=== PATIENT | female | born 1950 | race Caucasian/White ===

== ENCOUNTER 2025-08-06 05:55 | Inpatient (IN) | payer MEDICARE, BC ==
[2025-08-06] VITALS (7 sets, daily range): BP systolic 118–148; BP diastolic 52–82; PULSE 66–75; RESP 15–20; TEMP 35.9–36.6; O2SAT 95–99
[~2025-08-06] VITALS: Ht 167.6 cm; Wt 52.2 kg
[2025-08-06 06:44] LABS: BASOPHILS % 0.6 % (0.0-2.0); EOSINOPHILS % 4.5 % (0.0-5.0); HEMATOCRIT. 31.1 % (36.0-48.0); HEMOGLOBIN. 10.2 g/dL (12.0-16.0); LYMPHOCYTES % 24.5 % (20.0-50.0); MEAN PLATELET VOLUME 8.6 fl (7.4-10.4); MONOCYTES % 10.6 % (2.0-8.0); NEUTROPHILS % 59.8 % (40.0-76.0); PLATELET 145 x1000/uL (130-400); RED BLOOD CELL COUNT 3.65 mill/uL (4.2-5.4); RED CELL DISTRIBUTION WIDTH 15.8 % (11.6-14.6)
[2025-08-06 07:02] LABS: CREATININE 1.2 mg/dL (0.6-1.0)
[2025-08-06 07:03] LABS: ETHANOL BLOOD < 10 mg/dL (<10); UREA NITROGEN BLOOD 20 mg/dL (9-23)
[2025-08-06 07:04] LABS: ASPARTATE AMINOTRANSFERASE 65 IU/L (<34); BILIRUBIN DIRECT 0.5 mg/dL (<=3.0)
[2025-08-06 07:05] LABS: BILIRUBIN TOTAL 0.9 mg/dL (0.1-1.0); PROTEIN TOTAL 6.7 g/dL (6.0-8.3)
[2025-08-06 07:07] LABS: INR 1.2
[2025-08-06] MEDS: IOHEXOL-350 100 ML BOTTLE ONE (09:40)
[2025-08-06] MEDS ORDERED: LORATADINE 10MG TABLET PO PRN (09:45)
[2025-08-06] MEDS ORDERED: GUAIFENESIN 200MG/10ML SUGAR FREE UDC PO PRN (09:45)
[2025-08-06] MEDS ORDERED: DOCUSATE SODIUM 100MG CAPSULE PO PRN (09:45)
[2025-08-06] MEDS ORDERED: ONDANSETRON HCL 4MG/2ML INJ IV PRN (09:45)
[2025-08-06] MEDS ORDERED: ACETAMINOPHEN 325MG TABLET PO PRN (09:45)
[2025-08-06] MEDS ORDERED: SODIUM CHLORIDE 0.45% 1,000 ML IV SCH (09:45)
[2025-08-06] MEDS ORDERED: MAGNESIUM/ALUMINUM HYDROXIDE/SIMETHICONE 30ML UDC PO PRN (09:45)
[2025-08-06] MEDS ORDERED: IPRATROPIUM/ALBUTEROL 0.5-3(2.5)MG/3ML NEB HHN PRN (09:45)
[2025-08-06] MEDS: SODIUM CHLORIDE 0.45% 1,000 ML IV SCH (10:04)
[2025-08-06] MEDS ORDERED: URSODIOL 300MG CAPSULE PO SCH (13:00)
[2025-08-06 13:14] LABS: LDL CHOLESTEROL 45 mg/dL (5-100); TRIGLYCERIDE 68 mg/dL (0-150)
[2025-08-06 13:15] LABS: PHOSPHORUS 2.8 mg/dL (2.5-4.9)
[2025-08-06 13:19] LABS: T4 FREE 1.16 ng/dL (0.89-1.76)
[2025-08-06 13:20] LABS: FOLIC ACID (FOLATE) SERUM 10.50 ng/mL (>5.38); VITAMIN B12 SERUM 926 pg/mL (211-911)
[2025-08-06 14:36] LABS: TROPONIN I HIGH SENSITIVITY < 4 ng/L (3.0-34)
[2025-08-06] MEDS ORDERED: Actigall (17:33)
[2025-08-06] MEDS ORDERED: ROSU40TA MT (17:33)
[2025-08-06] MEDS ORDERED: TACR1CAP2 MT (17:33)
[2025-08-06] MEDS ORDERED: MELA5TAB19 MT (17:33)
[2025-08-06] MEDS: MAGNESIUM 1 G PREMIX 100 ML IV SCH (18:19)
[2025-08-06] MEDS: ATORVASTATIN CALCIUM 40MG TABLET PO SCH (20:52)
[2025-08-06] MEDS: LATANOPROST 0.005% OPHTH DROPS 2.5ML BOTHEYE SCH (20:52)
[2025-08-06] MEDS ORDERED: TACR0.5C4 PO (22:04)
[2025-08-06] MEDS: TACROLIMUS 1MG CAPSULE PO SCH (22:18)
[2025-08-06 23:40] LABS: TROPONIN I HIGH SENSITIVITY < 4 ng/L (3.0-34)
[2025-08-07] VITALS: BP 147/66; PULSE 72; RESP 20; TEMP 36.3; O2SAT 96
[2025-08-07] MEDS: ACETAMINOPHEN 325MG TABLET PO PRN (03:33)
[2025-08-07 04:00] VITALS: BP 145/66; PULSE 69; RESP 20; TEMP 36.3; O2SAT 100
[2025-08-07 07:09] LABS: CREATININE 1.1 mg/dL (0.6-1.0); PLATELET 163 x1000/uL (130-400); RED BLOOD CELL COUNT 4.15 mill/uL (4.2-5.4); RED CELL DISTRIBUTION WIDTH 15.3 % (11.6-14.6); UREA NITROGEN BLOOD 16.0 mg/dL (9-23)
[2025-08-07] MEDS: LEVOTHYROXINE SODIUM 25MCG TABLET PO SCH (07:50)
[2025-08-07 08:00] VITALS: BP 133/58; PULSE 67; RESP 18; TEMP 36.5; O2SAT 98
[2025-08-07] MEDS ORDERED: TACROLIMUS 1MG/PACKET PO SCH (09:00)
[2025-08-07 12:00] VITALS: BP 154/72; PULSE 73; RESP 18; TEMP 36.6; O2SAT 98
[2025-08-07 13:47] LABS: CLARITY URINE CLEAR (CLEAR); COLOR URINE YELLOW (YELLOW); GLUCOSE URINE NEGATIVE (NEGATIVE); KETONES URINE NEGATIVE (NEGATIVE); LEUKOCYTE ESTERASE URINE NEGATIVE (NEGATIVE); NITRITE URINE NEGATIVE (NEGATIVE); OCCULT BLOOD URINE NEGATIVE (NEGATIVE); PH URINE 6.0 (4.5-8.0); PROTEIN URINE NEGATIVE (NEGATIVE); SPECIFIC GRAVITY URINE 1.009 (1.005-1.030); UROBILINOGEN URINE 0.2 E.U./dL (0.2-1.0)
[2025-08-07 13:57] LABS: *AMPHETAMINES SCREEN URINE NEGATIVE (NEGATIVE); *BARBITURATES SCREEN URINE NEGATIVE (NEGATIVE); *BENZODIAZEPINES SCREEN URINE NEGATIVE (NEGATIVE); *COCAINE SCREEN URINE NEGATIVE (NEGATIVE); CANNABINOID URINE SCREEN NEGATIVE (NEGATIVE); ECSTASY MDMA SCREEN URINE NEGATIVE (NEGATIVE); METHADONE URINE SCREEN NEGATIVE (NEGATIVE); OPIATES URINE SCREEN NEGATIVE (NEGATIVE); PHENCYCLIDINE URINE SCREEN NEGATIVE (NEGATIVE)
[2025-08-07] MEDS ORDERED: AMLO5TAB88 PO (14:22)
[2025-08-07] MEDS ORDERED: BRIM.2 EACHEYE (14:22)
[2025-08-07] MEDS ORDERED: ZOLP10TA2 PO (14:22)
[2025-08-07] MEDS ORDERED: LATA2.5D7 EACHEYE (14:22)
[2025-08-07] MEDS ORDERED: URSO250T21 PO (14:24)
[2025-08-07 16:00] VITALS: BP 123/66; PULSE 70; RESP 17; TEMP 36.5; O2SAT 100
[2025-08-07] MEDS ORDERED: CLONIDINE 0.1MG TABLET PO PRN (16:45)
[2025-08-07 17:28] LABS: TRIGLYCERIDE 73.0 mg/dL (0-150)
[2025-08-07 17:29] LABS: LDL CHOLESTEROL 51.0 mg/dL (5-100)
[2025-08-07 17:30] LABS: CREATINE KINASE MB FRACTION < 0.5 ng/mL (0.5-3.6); TROPONIN I HIGH SENSITIVITY < 4 ng/L (3.0-34)
[2025-08-07 17:31] LABS: T4 FREE 1.05 ng/dL (0.89-1.76)
[2025-08-07] MEDS ORDERED: MELATONIN 3MG TABLET PO SCH (21:00)
[2025-08-08] MEDS ORDERED: AMLODIPINE 5MG TABLET PO SCH (09:00)
== END 2025-08-07 17:55 | disposition left against medical advice (07) | DRG 69 ==
LOC: ER 05:55 → EDBEDREQTM 09:42 → EDBEDREQ 09:42 → 7WST 09:53
PROVIDERS: ADMIT Internal Medicine; ATTEND Internal Medicine
DX: G45.9 Transient cerebral ischemic attack, unspecified (principal); I69.354 Hemiplegia and hemiparesis following cerebral infarction affecting left non-dominant side; N17.9 Acute kidney failure, unspecified; Z94.4 Liver transplant status; D84.821 Immunodeficiency due to drugs; E78.5 Hyperlipidemia, unspecified; I10 Essential (primary) hypertension; D64.9 Anemia, unspecified; E03.9 Hypothyroidism, unspecified; R74.8 Abnormal levels of other serum enzymes; L30.9 Dermatitis, unspecified; N14.2 Nephropathy induced by unspecified drug, medicament or biological substance; K76.9 Liver disease, unspecified; T50.905A Adverse effect of unspecified drugs, medicaments and biological substances, initial encounter; H26.9 Unspecified cataract; Z53.29 Procedure and treatment not carried out because of patient's decision for other reasons; Z79.899 Other long term (current) drug therapy; Y92.89 Other specified places as the place of occurrence of the external cause; Z79.60 Long term (current) use of unspecified immunomodulators and immunosuppressants; H91.10 Presbycusis, unspecified ear
CPT/HCPCS: 36415; 70496; 70498; 70551; 71045; 80048; 80061; 80076; 80197; 80305; 80320; 81003; 82140; 82550; 82553; 82607; 82728; 82746; 83036; 83540; 83550; 83605; 83735; 83880; 84100; 84439; 84443; 84484; 85025; 85027; 85379; 93005; 93970; 96365; 97162; 97166; 99291; J3475; J7507; Q9967; G0480